=== PATIENT | male | born 1935 | race Caucasian/White ===

== ENCOUNTER 2017-04-22 08:55 | Inpatient (IN) | payer OTHER ==
[~2017-04-22] VITALS: Ht 177.8 cm; Wt 70.2 kg
[2017-04-22] MEDS ORDERED: MAGNESIUM CITRATE 300ML ORAL SOL ONE (10:39)
[2017-04-22] MEDS ORDERED: HYDROmorphone 1 MG/ML, 1ML ONE (10:39)
[2017-04-22] MEDS ORDERED: MAGNESIUM CITRATE 300ML ORAL SOL PO ONE (11:00)
[2017-04-22] MEDS ORDERED: HYDROmorphone 1 MG/ML, 1ML IM PRN (11:00)
[2017-04-22] MEDS ORDERED: FAMCICLOVIR 500 MG TABLET PO ONE (11:00)
[2017-04-22] MEDS ORDERED: HYDROmorphone 1 MG/ML, 1ML IVPush PRN (12:30)
[2017-04-22 12:48] LABS: ASPARTATE AMINO TRANSFERASE 30 U/L (15-37); BLOOD UREA NITROGEN 14 mg/dL (7-18)
[2017-04-22] MEDS ORDERED: ACETAMINOPHEN 325 MG TABLET PO PRN (14:00)
[2017-04-22] MEDS ORDERED: TEMAZEPAM 15 MG CAPSULE PO PRN (14:00)
[2017-04-22] MEDS ORDERED: ONDANSETRON 2MG/ML, 2ML IVPush PRN (14:00)
[2017-04-22] MEDS: SODIUM CHLORIDE 0.9% 1,000 ML IV SCH (16:43)
[2017-04-22] MEDS: ENOXAPARIN 40 MG/0.4 ML SQ SCH (16:43)
[2017-04-22 17:01] VITALS: BP 144/95
[2017-04-22 17:09] VITALS: BP 144/95
[2017-04-22 21:05] VITALS: BP 114/72
[2017-04-22] MEDS: morphine SULFATE 10 MG/ML, 1ML IVPush PRN (23:52)
[2017-04-23] VITALS: BP 129/72
[2017-04-23] MEDS: SODIUM CHLORIDE 0.9% 1,000 ML IV SCH ×2 (02:29→07:51)
[2017-04-23 05:43] LABS: BLOOD UREA NITROGEN 17 mg/dL (7-18)
[2017-04-23 06:57] VITALS: BP 131/73
[2017-04-23] MEDS: ACYCLOVIR 800 MG TABLET PO SCH ×5 (10:00→21:00)
[2017-04-23] MEDS ORDERED: LACTULOSE 20 GM/30 ML UDC PO SCH (10:00)
[2017-04-23 10:50] LABS: ASPARTATE AMINO TRANSFERASE 24 U/L (15-37); BLOOD UREA NITROGEN 18 mg/dL (7-18)
[2017-04-23] MEDS ORDERED: OMNIPAQUE 350 MG/ML, 100ML BOTTLE ONE (12:18)
[2017-04-23] MEDS: morphine SULFATE 10 MG/ML, 1ML IVPush PRN ×2 (13:26→21:45)
[2017-04-23] MEDS: D5%-0.45NACL+KCL 20MEQ 1,000 ML IV SCH (13:26)
[2017-04-23] MEDS: ENOXAPARIN 40 MG/0.4 ML SQ SCH (13:26)
[2017-04-23 17:54] VITALS: BP 138/79
[2017-04-23] MEDS ORDERED: LACTULOSE 20 GM/30 ML UDC PO ONE (18:00)
[2017-04-23 20:58] VITALS: BP 145/82
[2017-04-23] MEDS: DOCUSATE 50 MG/5 ML, 10ML UDC PO SCH (21:45)
[2017-04-24 01:53] VITALS: BP 134/79
[2017-04-24] MEDS: D5%-0.45NACL+KCL 20MEQ 1,000 ML IV SCH ×3 (02:06→22:10)
[2017-04-24] MEDS: ACYCLOVIR 800 MG TABLET PO SCH ×5 (05:17→21:00)
[2017-04-24 05:51] LABS: BLOOD UREA NITROGEN 12 mg/dL (7-18)
[2017-04-24 05:58] LABS: ASPARTATE AMINO TRANSFERASE 21 U/L (15-37)
[2017-04-24 06:32] VITALS: BP 125/70
[2017-04-24] MEDS: BISACODYL 10 MG SUPP PR SCH (09:10)
[2017-04-24] MEDS: DOCUSATE 50 MG/5 ML, 10ML UDC PO SCH ×2 (09:10→21:00)
[2017-04-24] MEDS: POLYETHYLENE GLYCOL 17 GM PACKET PO SCH (09:10)
[2017-04-24 12:30] VITALS: BP 119/75
[2017-04-24 12:32] LABS: OCCBLD OBC PASS
[2017-04-24] MEDS: ENOXAPARIN 40 MG/0.4 ML SQ SCH (14:08)
[2017-04-24] MEDS ORDERED: GOLYTELY 4,000ML ORAL.SOL PO ONE (17:00)
[2017-04-24 18:19] VITALS: BP 130/73
[2017-04-24] MEDS: morphine SULFATE 10 MG/ML, 1ML IVPush PRN (22:02)
[2017-04-25 00:53] VITALS: BP 134/76
[2017-04-25] MEDS: ACYCLOVIR 800 MG TABLET PO SCH ×4 (05:32→22:40)
[2017-04-25 06:12] LABS: ASPARTATE AMINO TRANSFERASE 26 U/L (15-37); BLOOD UREA NITROGEN 6 mg/dL (7-18)
[2017-04-25 06:40] VITALS: BP 131/70
[2017-04-25] MEDS: POLYETHYLENE GLYCOL 17 GM PACKET PO SCH (09:00)
[2017-04-25] MEDS: DOCUSATE 50 MG/5 ML, 10ML UDC PO SCH ×2 (09:00→22:40)
[2017-04-25] MEDS: BISACODYL 10 MG SUPP PR SCH (09:02)
[2017-04-25] MEDS: D5%-0.45NACL+KCL 20MEQ 1,000 ML IV SCH (12:07)
[2017-04-25 13:51] VITALS: BP 133/79
[2017-04-25] MEDS ORDERED: FENTANYL PF 100 MCG/2ML ONE (14:34)
[2017-04-25] MEDS ORDERED: MIDAZOLAM 1 MG/ML, 5ML ONE (14:34)
[2017-04-25] MEDS: ENOXAPARIN 40 MG/0.4 ML SQ SCH (16:49)
[2017-04-25 18:28] VITALS: BP 125/62
[2017-04-26 01:27] VITALS: BP 120/56
[2017-04-26] MEDS: ACYCLOVIR 800 MG TABLET PO SCH ×3 (01:49→10:00)
[2017-04-26] MEDS: D5%-0.45NACL+KCL 20MEQ 1,000 ML IV SCH ×2 (01:49→12:00)
[2017-04-26 05:46] LABS: BLOOD UREA NITROGEN 7 mg/dL (7-18)
[2017-04-26 07:28] VITALS: BP 113/68
[2017-04-26] MEDS ORDERED: ACYC-57 PO (08:22)
[2017-04-26] MEDS: BISACODYL 10 MG SUPP PR SCH (09:00)
[2017-04-26] MEDS: POLYETHYLENE GLYCOL 17 GM PACKET PO SCH (09:00)
[2017-04-26] MEDS: DOCUSATE 50 MG/5 ML, 10ML UDC PO SCH (10:03)
== END 2017-04-26 12:35 | disposition home or self-care (01) | DRG 595 ==
LOC: ED 12:45 → EDIP 13:15 → SUATTDRO 13:33 → 3NE 14:45
PROVIDERS: ADMIT Internal Medicine; ATTEND Internal Medicine
PROC: 0DJD8ZZ Inspection of Lower Intestinal Tract, Via Natural or Artificial Opening Endoscopic (ICD-10-PCS; principal; 2017-04-25 15:00)
DX: B02.9 Zoster without complications (principal); K85.90 Acute pancreatitis without necrosis or infection, unspecified; K52.9 Noninfective gastroenteritis and colitis, unspecified; E16.2 Hypoglycemia, unspecified; K59.00 Constipation, unspecified; K63.9 Disease of intestine, unspecified; M06.9 Rheumatoid arthritis, unspecified; R16.1 Splenomegaly, not elsewhere classified; K57.30 Diverticulosis of large intestine without perforation or abscess without bleeding; K64.8 Other hemorrhoids; J06.9 Acute upper respiratory infection, unspecified; G40.409 Other generalized epilepsy and epileptic syndromes, not intractable, without status epilepticus; H91.90 Unspecified hearing loss, unspecified ear; E80.6 Other disorders of bilirubin metabolism; Z90.49 Acquired absence of other specified parts of digestive tract
CPT/HCPCS: 36415; 74000; 74177; 76700; 80048; 80053; 80061; 81003; 82272; 82378; 83605; 83690; 83735; 85025; 87324; 96372; 99152; 99153; J1170; J1650; J2250; J3010; Q9967; J2270; J3480; J7030

== ENCOUNTER 2019-04-15 14:59 | Emergency (ER) | payer OTHER ==
[~2019-04-15] VITALS: Ht 177.8 cm; Wt 70.7 kg
[~2019-04-15 14:59] MED LIST: ACYC-57 PO; DOCU100C33 PO
--- NOTE | 2019-04-15 15:22 | NUR ---
BIB [facility] W/ CO R RIB PAIN, R EYE BROW LAC AND MULITPLE SKIN TEARS SP MECHANICAL GLF. +"I BLACKED OUT FOR A SECOND AFTER"; DENIES CP/DIZZINESS/N/V/MIDLINE NECK OR BACK PAIN/ABD TENDERNESS. R RIB TENDER TO PALPATION; NO CREPITUS NOTED. CHEST RISE EVEN/REGULAR. ABD NON-TENDER. MULTIPLE SKIN TEARS NOTED TO R ELBOW AND BILAT KNEES. LARGE HEMATOMA TO R ELBOW. +CMS TO ALL EXTREMITIES. NO OBVIOUS DEFORMITY NOTED. UNKNOWN LAST TETANUS. BP/SPO2 MONITOR IN PLACE.
[2019-04-15] MEDS ORDERED: DIPH,PERTUSS(ACELL),TET VAC/PF 0.5 ML IM-VACC ONE ×2 (15:30→15:58)
--- NOTE | 2019-04-15 16:32 | NUR ---
CTS RESULTED. CHART UP FOR RECHECK. AWAITING FURTHER IMAGING/ORDERS FOR WOUND CARE
[2019-04-15] MEDS ORDERED: LIDOCAINE-MPF 1%, 5ML ONE (16:34)
--- NOTE | 2019-04-15 16:48 | NUR ---
SUTURE SET UP COMPLETE. LIDO TO PROVIDER.
[2019-04-15] MEDS ORDERED: BACITRACIN ZINC OINT 500U/GM, 0.9 GM ONE ×2 (17:03→18:25)
--- NOTE | 2019-04-15 17:16 | NUR ---
TECH AT BEDSIDE FOR IRRIGATION.
[2019-04-15 17:30] VITALS: BP 140/70
--- NOTE | 2019-04-15 17:45 | NUR ---
SUTURES/WOUND CARE COMPLETED. PT OFF MONITORING AND STANDING STEADILY, DRESSING SELF. SO AT BEDSIDE. AWAITING DC INSTRUCTIONS.
--- NOTE | 2019-04-15 18:34 | NUR ---
DC EDUCATION PROVIDED, PT DEMONSTRATES UNDERSTANDING. PT AMBULATED STEADILY TO DC WITH RN AND SO
== END 2019-04-15 18:36 | disposition home or self-care (01) ==
LOC: ED 18:00
DX: S01.111A Laceration without foreign body of right eyelid and periocular area, initial encounter (principal); W01.0XXA Fall on same level from slipping, tripping and stumbling without subsequent striking against object, initial encounter; Y93.01 Activity, walking, marching and hiking; Y92.410 Unspecified street and highway as the place of occurrence of the external cause; Y99.8 Other external cause status
CPT/HCPCS: 12051; 70450; 72125; 90471; 90715